=== PATIENT | female | born 1955 | race Caucasian/White ===

== ENCOUNTER 2020-05-18 14:30 | Outpatient (CLI) | payer MEDICARE | END 2020-05-18 14:31 | disposition home or self-care (01) | LOC: DTY/OP 14:30 | PROVIDERS: ATTEND Surgery | DX: I10 Essential (primary) hypertension (principal); K21.9 Gastro-esophageal reflux disease without esophagitis; E66.01 Morbid (severe) obesity due to excess calories; Z68.43 Body mass index [BMI] 50.0-59.9, adult | CPT/HCPCS: 97802 ==

== ENCOUNTER 2020-06-23 13:03 | Outpatient (CLI) | payer MEDICARE | END 2020-06-23 13:04 | disposition home or self-care (01) | LOC: DTY/OP 13:03 | PROVIDERS: ATTEND Surgery | DX: E66.01 Morbid (severe) obesity due to excess calories (principal); K21.9 Gastro-esophageal reflux disease without esophagitis; I10 Essential (primary) hypertension; Z68.43 Body mass index [BMI] 50.0-59.9, adult | CPT/HCPCS: 97802 ==

== ENCOUNTER 2020-08-08 11:54 | Outpatient (CLI) | payer MEDICARE ==
--- NOTE | 2020-08-08 12:08 | RAD ---
XR Chest Pa Lat STANDARD HISTORY: Dyspnea. Preoperative evaluation COMPARISON: 04/22/2010 FINDINGS: The heart size is normal. The aorta is tortuous. The lungs are well expanded without focal areas of consolidation, pneumothorax or pleural effusions. IMPRESSION: No radiographic evidence of acute cardiopulmonary process.
== END 2020-08-08 11:55 | disposition home or self-care (01) ==
LOC: BICRAD 11:54
PROVIDERS: ATTEND Internal Medicine Pulmonary Disease
DX: R06.00 Dyspnea, unspecified (principal)
CPT/HCPCS: 71046

== ENCOUNTER 2020-09-07 08:46 | Outpatient (CLI) | payer MEDICARE, OTHER ==
[2020-09-08 12:34] LABS: SARS-CoV-2 MS2 Positive; SARS-CoV-2 N Gene Negative; SARS-CoV-2 S Gene Negative; SARS-CoV-2 by NAA Not Detected (NotDetected); SARS-CoV-2 orf1ab Negative
== END 2020-09-07 08:47 | disposition home or self-care (01) ==
LOC: LABBT 08:46
PROVIDERS: ATTEND Surgery
DX: E66.01 Morbid (severe) obesity due to excess calories (principal); Z20.828 Contact with and (suspected) exposure to other viral communicable diseases
CPT/HCPCS: 87635; U0003

== ENCOUNTER 2020-09-07 15:15 | Inpatient (IN) | payer MEDICARE ==
[2020-09-11 13:20] VITALS: BMI 47.2
[2020-09-12] MEDS ORDERED: Glycopyrrolate 0.2 MG/ML 5 ML SYRINGE ONE (08:47)
[2020-09-12] MEDS ORDERED: Ondansetron PF 4 MG/2 ML Vial ONE (08:47)
[2020-09-12] MEDS ORDERED: PROPOFOL 200 MG/20 ML VIAL ONE (08:47)
[2020-09-12] MEDS ORDERED: Ketorolac Tromethamine 30 MG/ML VIAL ONE (08:47)
[2020-09-12] MEDS ORDERED: Dexamethasone 20 MG/5 ML VIAL ONE (08:47)
[2020-09-12] MEDS ORDERED: Scopolamine 1.5 mg/72 hour Patch ONE (11:11)
[2020-09-12] MEDS ORDERED: Enoxaparin Sodium 40 MG/0.4 ML SYRINGE ONE (11:12)
[2020-09-12] MEDS ORDERED: Bupivacaine/Epinephrine 0.25% 30 ML VIAL ONE ×2 (12:18→14:15)
[2020-09-12] MEDS ORDERED: Midazolam HCl 2 mg/2 ml Vial ONE (12:28)
[2020-09-12] MEDS ORDERED: Fentanyl 100 MCG/2 ML VIAL ONE ×2 (12:28→18:11)
[2020-09-12 12:29] LABS: Anion Gap 16 mmol/L (10-20); BUN (Urea Nitrogen) 31 mg/dL (9.8-20.1); Calc. Creatinine Clearance 48 mL/min (70-130); Calcium 10.1 mg/dL (7.8-10.44); Carbon Dioxide 20 mmol/L (23-31); Chloride 103 mmol/L (98-107); Estimated GFR-MDRD 24; Glucose 107 mg/dL (80-115); Potassium 4.6 mmol/L (3.5-5.1); Sodium 134 mmol/L (136-145)
[2020-09-12] MEDS ORDERED: HYDROmorphone 0.5 MG/0.5 ML SYRINGE ONE (12:29)
--- NOTE | 2020-09-12 15:02 | EKG ---
Test Reason : PREOP Blood Pressure : / mmHG Vent. Rate : 055 BPM Atrial Rate : 055 BPM P-R Int : 154 ms QRS Dur : 072 ms QT Int : 446 ms P-R-T Axes : 028 043 041 degrees QTc Int : 426 ms Sinus bradycardia Otherwise normal ECG No previous ECGs available Confirmed by SARAI ALANIZ (2) on 09/12/2020 3:01:54 PM Referred By: HÉCTOR Confirmed By:SARAI ALANIZ
[2020-09-12] MEDS ORDERED: diphenhydrAMINE 50 MG/ML VIAL IVP PRN (16:33)
[2020-09-12] MEDS ORDERED: Ondansetron PF 4 MG/2 ML Vial IVP PRN (16:33)
[2020-09-12] MEDS ORDERED: Morphine 2 MG/ML VIAL SLOW IVP PRN (16:33)
[2020-09-12] MEDS ORDERED: Dextrose 5% in Water 1,000 ML IV PRN (16:33)
[2020-09-12] MEDS ORDERED: Promethazine HCl 25 MG/ML VIAL IM PRN (16:33)
[2020-09-12] MEDS ORDERED: Dextrose 50% Abboject 50 ML SYRINGE SLOW IVP PRN (16:33)
[2020-09-12] MEDS ORDERED: HYDROmorphone 2 MG/ML VIAL ONE (16:53)
[2020-09-12] MEDS ORDERED: Promethazine HCl 25 MG/ML VIAL ONE (17:04)
--- NOTE | 2020-09-12 17:17 | PDOC.OP ---
Operative Note - Operative Note Operative Note: DATE OF SURGERY: September 12, 2020 SURGEON: Maury Kunz MD PREOPERATIVE DIAGNOSIS: Morbid obesity Hypertension Diabetes mellitus Hyperlipidemia GERD POSTOPERATIVE DIAGNOSIS: Morbid obesity Hypertension Diabetes mellitus Hyperlipidemia GERD PROCEDURE: 1. Robotic Ju-en-Y gastric bypass 2. Laparoscopic lysis of adhesions 3. EGD INDICATIONS: 64-year-old female with a history of morbid obesity and the comorbidities of morbid obesity. The patient was evaluated in the outpatient setting and deemed a good candidate for gastric bypass. The relative risk and benefits of this procedure were discussed in detail with the patient, specifically addressing the risk of staple line leak, marginal ulceration, internal hernia, and the need for additional procedures. Informed consent was obtained. PROCEDURE IN DETAIL: Patient was brought to the operating room and positioned supine on the operating room table. After induction of general, endotracheal anesthesia, the patient was prepared and draped in usual fashion. Prior to beginning the procedure, a c omplete timeout was performed with all members of the operative team being present and in agreement. Access to the abdomen was obtained in the right upper quadrant using an optical trocar under direct visualization. The abdomen was insufflated, and additional trochars placed under direct visualization. The patient had a previous recurrent incisional hernia repair with intraperitoneal mesh placement, which caused dense adhesions of the omentum, transverse colon, and small bowel to the anterior abdominal wall. Delicate lysis of adhesions was performed sharply until the colon and omentum were released, and all small bowel were freely mobilized. 62 minutes was spent on laparoscopic adhesiolysis. The robot was docked in the usual fashion. The pars flaccida was entered bluntly and divided distal to the left gastric artery using a vessel sealing device. A small pouch was constructed using sequential firings of a blue staple load. The biliopancreatic limb was measured and brought up to the gastric pouch. A handsewn gastrojejunostomy was performed. The inner layer was constructed of 2-0 Vicryl suture in a running fashion. The outer layer was completed using 20, absorbable, barbed suture. This anastomosis was created over a calibration tube. The biliopancreatic limb was then divided. 150 cm of Ju limb was measured, and brought to the biliopancreatic limb. An end-to-side anastomosis was created using a linear stapler. The common enterotomy was closed using 30 barbed suture. The mesenteric defect was closed using 30 barbed suture in a running fashion. A well lubricated endoscope was introduced into the oral cavity, and the esophagus intubated. The esophagus was found to be patulous, with LA grade a to B esophagitis consistent with the patient's previous endoscopy and history of severe reflux. The pouch was entered and examined. It was approximately 6 cm x 3 cm. The gastrojejunal anastomosis was intubated and the Ju limb entered. There was no evidence of gross hemorrhage or other abnormalities. The gastric pouch and gastrojejunostomy were insufflated and a leak test performed which was negative. Excess gas was suctioned free and the endoscope removed. Laparoscope was introduced into the abdominal cavity. Excellent hemostasis was verified, and any free fluid suctioned free. The 12 mm trocar sites were closed using 0Vicryl ties and a suture passer. The skin was closed with 4-0 Monocryl, and dressed with skin adhesive dressing. At conclusion of the case, all sponge and instrument counts were correct. ESTIMATED BLOOD LOSS: Minimal COMPLICATIONS: None INTRAOPERATIVE BLOOD TRANSFUSIONS: None GRAFTS / IMPLANTS: None SPECIMENS: None DISPOSITION: The patient was transported to the postoperative recovery unit in good condit ions to be admitted to the floor when criteria met.
[2020-09-12] MEDS: Metoprolol Tartrate 5 MG/5 ML VIAL IVP SCH (20:05)
[2020-09-12] MEDS: D5 1/2 NS w/20 mEq KCL 1,000 ML IV SCH (20:26)
[2020-09-12] MEDS: Ketorolac Tromethamine 30 MG/ML VIAL IVP SCH (20:26)
[2020-09-13] MEDS: Ketorolac Tromethamine 30 MG/ML VIAL IVP SCH ×2 (01:02→06:05)
[2020-09-13] MEDS: Insulin Regular 300 UNITS/3 ML VIAL SC PRN ×2 (01:02→06:06)
[2020-09-13] MEDS: D5 1/2 NS w/20 mEq KCL 1,000 ML IV SCH ×3 (01:02→14:10)
[2020-09-13] MEDS: Metoprolol Tartrate 5 MG/5 ML VIAL IVP SCH ×5 (01:03→23:44)
[2020-09-13] MEDS: Hydrocodone-Acetamin 15 ML UDCUP PO PRN ×4 (03:29→23:44)
[2020-09-13 05:52] LABS: #Lymphocytes 0.8 thou/uL (1.20-3.40); #Monocytes 0.6 thou/uL (0.11-0.59); #Neutrophils 10.8 thou/uL (1.40-6.50); %Eosinophils 0.1 % (0.0-10.0); %Lymphocytes 6.8 % (21.0-51.0); %Monocytes 4.5 % (0.0-10.0); %Neutrophils 88.6 % (42.0-75.0); Hemoglobin 11.8 g/dL (12.0-16.0); Mean Corpuscular HGB CONC 33.2 g/dL (32.0-36.0); Mean Corpuscular Hemoglobin 29.1 pg (27.0-31.0); Mean Corpuscular Volume 87.8 fL (78.0-98.0); Mean Platelet Volume 9.2 fL (7.4-10.4); Platelet Count 253 thou/uL (130-400); RBC Distribution Width 12.4 % (11.5-14.5); Red Blood Cell (RBC) Count 4.06 mill/uL (4.20-5.40); White Blood Cell (WBC) Count 12.2 thou/uL (4.8-10.8)
[2020-09-13 06:07] LABS: Anion Gap 15 mmol/L (10-20); BUN (Urea Nitrogen) 33 mg/dL (9.8-20.1); Calc. Creatinine Clearance 46 mL/min (70-130); Calcium 8.7 mg/dL (7.8-10.44); Carbon Dioxide 20 mmol/L (23-31); Chloride 102 mmol/L (98-107); Estimated GFR-MDRD 23; Glucose 186 mg/dL (80-115); Potassium 4.9 mmol/L (3.5-5.1); Sodium 132 mmol/L (136-145)
--- NOTE | 2020-09-13 06:52 | PDOC.GSPN ---
Surgery Progress Note: Subj - Subjective Narrative: Doing well. Ambulating independently. Tolerating bariatric clear liquid diet with minimal nausea. Voiding spontaneously. P.o.: 240 cc Urine output: 1000 cc Surgery Progress Note: Obj - Vital signs Vital signs: Vital Signs - Most Recent Temp Pulse Resp BP Pulse Ox 98.2 F 60 18 152/83 H 97 09/13/20 03:17 09/13/20 03:17 09/13/20 03:17 09/13/20 03:17 09/13/20 03:17 - Physical Exam General: no distress, well developed, well nourished Cardiovascular: regular rate and rhythm Respiratory: normal expansion, normal respiratory effort Abdomen: soft, appropriately tender Wound: healing well Surgery Progress Note: Results - Labs Result Diagrams: 09/13/20 04:53 09/13/20 04:53 Lab results: Laboratory Results - last 12 hr 09/12/20 09/12/20 09/13/20 20:39 23:36 04:53 WBC RBC Hgb Hct MCV MCH MCHC RDW Plt Count MPV Neutrophils % Lymphocytes % Monocytes % Eosinophils % Basophils % Neutrophils # Lymphocytes # Monocytes # Eosinophils # Basophils # Sodium 132 L Potassium 4.9 Chloride 102 Carbon Dioxide 20 L Anion Gap 15 BUN 33 H Creatinine 2.17 H Estimated GFR (MDRD) 23 Glucose 186 H POC Glucose 153 H 206 H Calcium 8.7 09/13/20 09/13/20 04:53 05:40 WBC 12.2 H RBC 4.06 L Hgb 11.8 L Hct 35.6 L MCV 87.8 MCH 29.1 MCHC 33.2 RDW 12.4 Plt Count 253 MPV 9.2 Neutrophils % 88.6 H Lymphocytes % 6.8 L Monocytes % 4.5 Eosinophils % 0.1 Basophils % 0.0 Neutrophils # 10.8 H Lymphocytes # 0.8 L Monocytes # 0.6 H Eosinophils # 0.0 Basophils # 0.0 Sodium Potassium Chloride Carbon Dioxide Anion Gap BUN Creatinine Estimated GFR (MDRD) Glucose POC Glucose 180 H Calcium Surgery Progress Note: A/P - Plan Plan: Status post robotic Ju-en-Y gastric bypass, lysis of adhesions, and EGD. Continue IV fluids due to mildly elevated creatinine Discontinue Toradol Continue ambulation Continue DVT prophylaxis with Lovenox Continue bariatric clear liquid diet Continue SSI
[2020-09-13] MEDS: Enoxaparin Sodium 40 MG/0.4 ML SYRINGE SC SCH (08:30)
[2020-09-13] MEDS: Pantoprazole 40 MG VIAL IVP SCH (08:31)
[2020-09-14] MEDS: D5 1/2 NS w/20 mEq KCL 1,000 ML IV SCH ×2 (00:23→08:56)
[2020-09-14] MEDS: Metoprolol Tartrate 5 MG/5 ML VIAL IVP SCH (05:49)
[2020-09-14] MEDS: Hydrocodone-Acetamin 15 ML UDCUP PO PRN ×2 (05:49→09:26)
[2020-09-14 07:41] VITALS: BP 106/73; TEMP 97.7
--- NOTE | 2020-09-14 07:45 | PDOC.BPN ---
- Brief Progress Note Encounter Date: 09/14/20 Encounter Time: 07:44 DATE OF ADMISSION: September 12, 2020 DATE OF DISCHARGE: September 14, 2020 ADMISSION DIAGNOSES: Morbid obesity Hypertension Diabetes Hyperlipidemia GERD DISCHARGE DIAGNOSES: Morbid obesity Hypertension Diabetes Hyperlipidemia GERD PROCEDURES: Robotic Ju-en-Y gastric bypass Laparoscopic lysis of adhesions EGD HOSPITAL COURSE: 64-year-old female with morbid obesity and the comorbidities of morbid obesity, who was evaluated for surgical weight loss in clinic. They presented on September 12, 2020 for robotic Ju-en-Y gastric bypass. They tolerated the procedure well, and were transferred to the floor. On the floor, bariatric clear liquid diet was initiated 4 hours postoperatively. The patient was also encouraged to walk 4 hours postoperatively and four times daily thereafter. Chemoprophylaxis for deep vein thrombosis was initiated preoperatively and continued through their postoperative hospitalization in addition to SARAH hose, SCD, and early ambulation. Strict oral intake of clear liquids was recorded to ensure adequate self hydration prior to discharge. Antiemetics were administered as needed as needed for nausea. On POD 2, their pain was well-controlled with oral analgesia only, they were ambulating independently and voiding spontaneously. They had demonstrated adequate oral intake to ensure self hydration and they were appropriate for discharge. CONSULTS: Nutrition DISCHARGE MEDICATIONS: see Discharge Medication Reconciliation Aline JOHNSON EXAMINATION: General: alert and oreinted, no acute distress, resting comfortably Cardiovascular: regular rate and rhythm Pulmonary: normal respirations, good tidal volume Abdomen: soft, non-tender, non-distended, incisions clean and intact Extremities: no edema, palpable pulses DISCHARGE INSTRUCTIONS: 1. Continue bariatric diet as instructed. See guidebook for questions. 2. Advance activity as tolerated. Avoid heavy lifting and straining until after postoperative clinic evaluation. Ambulate daily. 3. Take medications as instructed. 4. Follow-up 1 weeks. Contact surgery clinic for appointment. 5. Do not remove Dermabond. Wash normally. It will come off on its own. 6. Consider [id number] stool softener or laxative while taking narcotic pain medication. 7. Contact the surgery clinic ([phone]) or report to the emergency department for persistent fevers, increasing pain, persistent nausea or vomiting.
[2020-09-14] MEDS: Pantoprazole 40 MG VIAL IVP SCH (08:40)
[2020-09-14] MEDS: Enoxaparin Sodium 40 MG/0.4 ML SYRINGE SC SCH (08:40)
== END 2020-09-14 10:00 | disposition home or self-care (01) | DRG 621 ==
LOC: SURG A 09-12 10:41 → SJJU 09-12 19:00
PROVIDERS: ADMIT Surgery; ATTEND Surgery
PROC: 0D164ZA Bypass Stomach to Jejunum, Percutaneous Endoscopic Approach (ICD-10-PCS; principal; 2020-09-12)
PROC: 0DNW4ZZ Release Peritoneum, Percutaneous Endoscopic Approach (ICD-10-PCS; 2020-09-12)
PROC: 8E0W4CZ Robotic Assisted Procedure of Trunk Region, Percutaneous Endoscopic Approach (ICD-10-PCS; 2020-09-12)
PROC: 0DJ08ZZ Inspection of Upper Intestinal Tract, Via Natural or Artificial Opening Endoscopic (ICD-10-PCS; 2020-09-12)
DX: E66.01 Morbid (severe) obesity due to excess calories (principal); E78.5 Hyperlipidemia, unspecified; K21.00 Gastro-esophageal reflux disease with esophagitis, without bleeding; E11.9 Type 2 diabetes mellitus without complications; I10 Essential (primary) hypertension; Z88.8 Allergy status to other drugs, medicaments and biological substances; Z68.42 Body mass index [BMI] 45.0-49.9, adult; J45.909 Unspecified asthma, uncomplicated
CPT/HCPCS: 36415; 36416; 80048; 85025; 93005; 93010; C9113; J0690; J1100; J1170; J1650; J1815; J1885; J2250; J2405; J2550; J2704; J3010; J3480

== ENCOUNTER 2020-10-05 23:06 | Emergency (ER) | payer MEDICARE ==
[2020-10-05] MEDS ORDERED: Morphine 4 MG/ML VIAL ONE (23:32)
--- NOTE | 2020-10-05 23:48 | RAD ---
Left knee 4 views HISTORY: Fall. Knee injury. FINDINGS: A comminuted predominantly transverse fracture through the midportion patella is present wi th up to 0.5 cm distraction of the major fragments. 0.2 cm intra-articular gap. Joint spaces are preserved. Small amount of fluid distends the suprapatellar bursa. IMPRESSION : Comminuted mildly distracted patellar fracture with hemarthrosis.
== END 2020-10-06 01:11 | disposition home or self-care (01) ==
LOC: ERS 23:06
DX: S82.042A Displaced comminuted fracture of left patella, initial encounter for closed fracture (principal); I10 Essential (primary) hypertension; F41.9 Anxiety disorder, unspecified; Z79.899 Other long term (current) drug therapy; W01.0XXA Fall on same level from slipping, tripping and stumbling without subsequent striking against object, initial encounter
CPT/HCPCS: 96374; J2270

== ENCOUNTER 2020-10-31 11:08 | Day surgery (SDC) | payer MEDICARE ==
[~2020-10-31 11:08] MED LIST: Multivitamins, Adult 10 ML, Thiamine HCl 100 MG, Folic Acid 1 MG in Dextrose 5 %-0.45 %... IV SCH; Sodium Chloride 0.9% 1,000 ML IV SCH
[2020-10-31] MEDS ORDERED: Dextrose 5 %-0.45 % NaCl 1,000 ML IV SCH (11:15)
[2020-10-31] MEDS ORDERED: Sodium Chloride 0.9% 20 ML ONE (11:18)
[2020-10-31 13:07] VITALS: BP 157/72; TEMP 98.1
== END 2020-10-31 13:51 | disposition home or self-care (01) ==
LOC: ONC/OP 11:08
PROVIDERS: ATTEND Surgery
DX: E86.0 Dehydration (principal); Z88.8 Allergy status to other drugs, medicaments and biological substances
CPT/HCPCS: 36415; 80048; 85025; 96361; 96365; 96366; J3411; J7042

== ENCOUNTER 2021-05-22 11:12 | Outpatient (CLI) | payer MEDICARE | END 2021-05-22 11:13 | disposition home or self-care (01) | LOC: BICRAD 11:12 | PROVIDERS: ATTEND Family Medicine | DX: M86.9 Osteomyelitis, unspecified (principal); G89.29 Other chronic pain; M47.816 Spondylosis without myelopathy or radiculopathy, lumbar region | CPT/HCPCS: 72100; 72190 ==

== ENCOUNTER 2021-08-15 14:42 | Outpatient (CLI) | payer MEDICARE | END 2021-08-15 14:43 | disposition home or self-care (01) | LOC: BICMAMMO 14:42 | PROVIDERS: ATTEND Family Medicine | DX: Z12.31 Encounter for screening mammogram for malignant neoplasm of breast (principal); Z13.820 Encounter for screening for osteoporosis; Z80.3 Family history of malignant neoplasm of breast; M85.89 Other specified disorders of bone density and structure, multiple sites | CPT/HCPCS: 77063; 77067; 77080 ==

== ENCOUNTER 2021-11-26 10:15 | Outpatient (CLI) | payer MEDICARE | END 2021-11-26 10:16 | disposition home or self-care (01) | LOC: BICRAD 10:15 | PROVIDERS: ATTEND Family Medicine | DX: M54.6 Pain in thoracic spine (principal) | CPT/HCPCS: 72072 ==

== ENCOUNTER 2021-12-04 07:00 | Outpatient (CLI) | payer MEDICARE | END 2021-12-04 07:01 | disposition home or self-care (01) | LOC: BICULT 07:00 | PROVIDERS: ATTEND Family Medicine | DX: R10.2 Pelvic and perineal pain (principal); N32.81 Overactive bladder; R93.89 Abnormal findings on diagnostic imaging of other specified body structures; K83.8 Other specified diseases of biliary tract; Z90.49 Acquired absence of other specified parts of digestive tract | CPT/HCPCS: 76700; 76856 ==

== ENCOUNTER 2023-11-26 14:51 | Outpatient (CLI) | payer MEDICARE | END 2023-11-26 14:52 | disposition home or self-care (01) | LOC: BICRAD 14:51 | PROVIDERS: ATTEND Nurse Practitioner Family | DX: R05.1 Acute cough (principal) | CPT/HCPCS: 71046; 87635 ==

== ENCOUNTER 2024-05-21 13:22 | Outpatient (CLI) | payer MEDICARE | END 2024-05-21 13:23 | disposition home or self-care (01) | LOC: BICRAD 13:22 | PROVIDERS: ATTEND Preventive Medicine Preventive Medicine/Occupational Environmental Medicine | DX: M79.671 Pain in right foot (principal) ==

== ENCOUNTER 2024-06-08 14:26 | Outpatient (CLI) | payer MEDICARE | END 2024-06-08 14:27 | disposition home or self-care (01) | LOC: BICMAMMO 14:26 | PROVIDERS: ATTEND Family Medicine | DX: Z12.31 Encounter for screening mammogram for malignant neoplasm of breast (principal); Z80.3 Family history of malignant neoplasm of breast | CPT/HCPCS: 77063; 77067 ==